=== PATIENT | male | born 1990 | race Caucasian/White ===

== ENCOUNTER 2017-07-31 21:39 | Emergency (ER) | payer OTHER ==
[~2017-07-31] VITALS: Ht 172.7 cm; Wt 80.0 kg
--- NOTE | 2017-07-31 21:57 | PD ---
HPI Chief Complaint: Foreign body left ear Time Seen by Provider: 21:50 Travel History International Travel<30 days: No Contact w/Intl Traveler<30days: No Traveled to known affect area: No History of Present Illness HPI 26-year-old male presents for evaluation of left ear foreign body sensation. 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 Just prior to arrival he reports that he was working outdoors when he felt a bug fly into his left ear canal. He now has a fluttering sensation in his left ear intermittently. Symptoms are moderate, no aggravating or relieving factors. No associated signs or symptoms. He has no other complaints at this time. [facility] Social History Alcohol Use: Yes Tobacco Use: Yes Allergies-Medications (Allergen,Severity, Reaction): Coded Allergies: No Known Allergies (Unverified , 07/31/17) Reported Meds & Prescriptions Reported Meds & Active Scripts Active No Active Prescriptions or Reported Medications Review of Systems General / Constitutional: No: Fever, Chills HENT: Positive: Other (Left ear foreign body sensation) Respiratory: No: Cough, Shortness of Breath Gastrointestinal: No: Abdominal Pain Skin: No Rash Physical Exam Narrative GENERAL: Well-developed well-nourished male no acute distress SKIN: Warm and dry. HEAD: Atraumatic. Normocephalic. EYES: Pupils equal and round. No scleral icterus. No injection or drainage. ENT: No nasal bleeding or discharge. Mucous membranes pink and moist. Examination left ear canal reveals tympanic memory is intact, foreign object is not visible at this time. NECK: Trachea midline. No JVD. RESPIRATORY: No accessory muscle use. Clear to auscultation. Breath sounds equal bilaterally. Data Data Last Documented VS Vital Signs Date Time Temp Pulse Resp B/P (MAP) Pulse Ox O2 Delivery O2 Flow Rate FiO2 07/31/17 22:00 98.1 98 16 146/81 (102) 98 Orders Orders Lidocaine Pf 1% Inj (Xylocaine-Mpf 1% In (07/31/17 22:00) Ed Discharge Order (07/31/17 22:36) MDM Medical Decision Making Medical Screen Exam Complete: Yes Emergency Medical Condition: Yes Medical Record Reviewed: Yes Differential Diagnosis Left ear foreign body versus bug versus tympanic membrane perforation versus cerumen versus pruritus Narrative Course Physical examination is currently unremarkable. There is no obvious foreign body or bug at this time. 1% lidocaine was irrigated into the left ear and left to sit for 10 minutes. The left ear was then thoroughly irrigated with warm water and hydrogen peroxide. No foreign body was expressed. Upon reexamination there is still no evidence of foreign body and the patient is asymptomatic. Most likely the patient had a bug that flew into his left ear canal and then left prior to arrival. The patient will be discharged with a short course of Cortisporin otic solution to prevent otitis externa. Diagnosis Primary Impression: Foreign body sensation in ear canal Additional Instructions: Medication as prescribed. Avoid getting water in left ear canal. Return for any emergent medical conditions. Med/Other Pt SpecificInfo: Prescription(s) given Scripts Wqhlmxtg-Hqlbdagtm-LC Otic Drops (Bjmwnirg-Bulkhmejy-OP Otic Drops) 3.5-10,000- 1 Mg-Units-% Soln 4 DROP LEFT EAR QID for Infection for 5 Days, BOTTLE 0 Refills Prov: Joseluis Cortez MD 07/31/17 Disposition: 01 DISCHARGE HOME Condition: Stable Rayray Peters Jul 31, 2017 21:57
[2017-07-31 22:00] VITALS: BP 146/81; PULSE 98; RESP 16; TEMP 98.1; O2SAT 98
[2017-07-31] MEDS ORDERED: LIDOCAINE HCL 1% PF 30 ML VIAL INFIL ONE (22:00)
[2017-07-31] MEDS ORDERED: NEOM1SOL7 LEFT EAR (22:37)
== END 2017-07-31 22:49 | disposition home or self-care (01) ==
LOC: NEPD 21:39
DX: Z03.89 Encounter for observation for other suspected diseases and conditions ruled out (principal); Z72.0 Tobacco use
CPT/HCPCS: 99283